=== PATIENT | female | born 1985 | race Caucasian/White ===

== ENCOUNTER → 2024-09-05 11:37 | Outpatient (CLI) | payer SELFPAY ==
[2024-09-05 14:43] LABS: Urine N gonorrhoeae NOT DETECTED
[2024-09-05 14:54] LABS: Hepatitis B Surface Antigen NEGATIVE s/c (NEGATIVE)
[2024-09-05 14:56] LABS: Urine Chlamydia NOT DETECTED
[2024-09-05 15:11] LABS: HIV 1 & 2 Ab/Ag 4th Gen Combo NEGATIVE (NEGATIVE); Hep C Virus Ab w/Reflex Quant NEGATIVE s/c (NEGATIVE)
[2024-09-06 04:37] LABS: RPR Screen Non Reactive (Non Reactive)
== END ==
LOC: LAB 11:45
PROVIDERS: PCP Nurse Practitioner Family; Referring Provider Nurse Practitioner Family; Visit Provider Nurse Practitioner Family
DX: Z11.3 Encounter for screening for infections with a predominantly sexual mode of transmission (principal); N39.3 Stress incontinence (female) (male)
CPT/HCPCS: 36415; 86592; 86695; 86696; 86803; 87340; 87389; 87491; 87591